=== PATIENT | female | born 1945 | race Caucasian/White ===

== ENCOUNTER 2016-10-27 03:03 | Observation (INO) ==
--- NOTE | 2016-10-27 03:26 | Emergency Department Note ---
Disposition Clinical Impression: Diaphoresis Dyspnea Qualifiers: Dyspnea type: unspecified Qualified Code(s): R06.00 - Dyspnea, unspecified Disposition: Admitted As Inpatient Condition: Undetermined Time of Disposition: 04:18 SOB HPI - General Chief Complaint: ED Shortness of Breath/Dyspnea Stated Complaint: "SOB/COPD/Bursting Out in Sweat" Time Seen by Provider: 10/27/16 03:18 Source: patient Mode of arrival: ambulatory Limitations: no limitations Nursing Notes Reviewed: Yes Vital Signs Reviewed: Yes - History of Present Illness 71-year-old female with history of COPD arrives [facility] emergency department complaining of a couple hours of shortness of breath and diaphoresis. The patient denies any chest pain associated with this. The patient does have a history of COPD and states this is a little bit like her COPD exacerbations. The patient denied using any albuterol inhalers are to arrival. The patient denies any other complaints at this time other than the dyspnea and diaphoresis. The patient denies any history of PE or DVT, recent surgeries, unilateral leg swelling, hemoptysis. 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 Severity: mild Consistency/Duration: constant Improves with: nothing Worsens with: nothing Known history of: COPD Associated symptoms: Reports: diaphoresis Treatment prior to arrival: none Cough present: No Sputum production: No - Related Data Home oxygen amount: none Allergies Allergy/AdvReac Type Severity Reaction Status Date / Time DARRYL Inhibitors Allergy Swelling Verified 10/27/16 03:07 of Lip/Tongue/Throat Sulfa (Sulfonamide Allergy Rash Verified 10/27/16 03:05 Antibiotics) Mfwmiul-Sil-Sbr Reductase AdvReac Muscle Pain Verified 10/27/16 03:07 Inhibitor [Statins] Review of Systems: Review of Systems Constitutional: Denies fevers, chills, night sweats HEENT: Denies headache, Respiratory: Denies cough, sputum change, hemoptysis, admits to dyspnea Cardiac: Denies chest pain, pressure, palpitations, dyspnea on exertion, pedal edema Gastrointestinal: Denies abdominal pain, changes in bowel habits, vomiting, nausea, hematemesis, hematochezia Genitourinary: Denies dysuria, hematuria, nocturia, change in frequency, urgency, incontinence Neurologic: Denies headaches, dizziness, syncope, focalized weakness, paraesthesias, weakness Musculoskeletal: Denies back pain, joint pain, myalgias All systems ED: reviewed and negative except as stated. Past Medical History - Past Medical History Attestation: Yes The following information was validated with the patient. Medical history: Reports: arthritis, COPD, coronary artery disease, diabetes, hyperlipidemia, hypertension Surgical history: Reports: non-contributory Psychiatric history: Reports: no psych history DRY BOX TENDER history: Reports: no DRY BOX TENDER history - Social History Smoking Status: Former smoker Smokeless Tobacco Status: No Alcohol use: Reports: none Drug use: Reports: none Physical Exam Physical Exam: General: Patient alert, no acute distress, not lethargic HEENT: Head normal inspection, atraumatic, PERRLA, oropharynx grossly intact and normal, trachea midline, no JVD Chest: Nontraumatic, nontender, normal chest rise CV: RRR with no murmurs, rubs, gallops Respiratory: Coarse breath sounds bilaterally, no rales, rhonchi, wheezes. Abdomen: Normal inspection, Normal bowel sounds 4 quadrants, nontender to palpation : Patient deferred Extremities: Normal inspection, full range of motion, appropriate pulses, capillary refill under 2 seconds Neurological: Patient alert and oriented 3, cranial nerves II through XII grossly intact, GCS 15 Skin: Warm, intact, no rashes noted - General Limitations: no limitations General appearance: alert Course Vital Signs Temperature 97.4 F L 10/27/16 03:07 Pulse Rate 91 10/27/16 03:07 Respiratory Rate 20 10/27/16 03:07 Blood Pressure 185/70 10/27/16 03:07 O2 Sat by Pulse Oximetry 95 10/27/16 03:07 Temperature 97.4 F L 10/27/16 03:07 Pulse Rate 81 10/27/16 04:29 Respiratory Rate 18 10/27/16 04:49 Blood Pressure 163/74 10/27/16 04:49 O2 Sat by Pulse Oximetry 95 10/27/16 04:29 Oxygen Delivery Oxygen Delivery Room Air Shortness of Breath/Dyspnea - MDM Narrative Medical decision making narrative: Patient's workup here in the emergency department demonstrates no acute process. Given the patient's diaphoresis and dyspnea without any active wheezing, and concern for cardiac origin. The patient has a heart score 4. Given this information we will likely admit the patient to the hospital. - Medical Records Medical records reviewed: Yes I reviewed the patient's medical records. - Lab Data Lab results reviewed: Yes I reviewed the patient's lab results. Result diagrams: 10/27/16 03:20 10/27/16 03:20 Lab Results 10/27/16 10/27/16 10/27/16 Range/Units 03:20 03:20 03:20 WBC 11.2 H (4.3-11.1) K/mcL RBC 4.53 (3.82-4.97) M/mcL Hgb 13.3 (11.5-15.4) g/dL Hct 40.1 (35.3-44.9) % MCV 88.5 (83.0-100.0) fL MCH 29.4 (28.0-33.3) pg MCHC 33.2 (31.6-35.5) g/dL RDW 12.7 (11.5-14.5) % Plt Count 306 (140-400) K/mcL MPV 9.7 (9.4-12.4) fL Immature Gran % 0.5 (0-4) % Seg Neutrophils % 82.9 % Lymphocytes % 9.4 % Monocytes % 5.7 % Eosinophils % 1.2 % Basophils % 0.3 % Neutrophils # 9.3 H (1.6-8.9) K/mcL Lymphocytes # 1.1 (0.6-4.6) K/mcL Monocytes # 0.6 (0.0-1.3) K/mcL Eosinophils # 0.1 (0.0-0.6) K/mcL Basophils # 0.0 (0.0-0.2) K/mcL Sodium 143 (136-145) mEq/L Potassium 4.0 (3.5-4.5) mEq/L Chloride 109 (98-109) mEq/L Carbon Dioxide 19 (19-29) mEq/L BUN 18 (7-20) mg/dL Creatinine 0.87 (0.57-1.11) mg/dL Est GFR ( Amer) > 60 (> 60) Est GFR (Non-Af Amer) > 60 (> 60) BUN/Creatinine Ratio 21 (6-26) Glucose 107 H (70-99) mg/dL Calculated Osmolality 298 (280-300) Calcium 10.2 (8.6-10.8) mg/dL Troponin I 0.00 (0-0.03) ng/mL - Radiology Data Radiology results reviewed: Yes I reviewed the patient's radiology results. - EKG Data EKG attestation: Yes I reviewed and interpreted this EKG. EKG results narrative: Heart rate 92 bpm. MO interval 180 ms. QTc 47 ms. Normal axis. Normal sinus rhythm. No ST elevation or ST depression noted. EKG sore to EKG from 2004. Attestation Statement - Attestation Attestation: Dr. Williamson note: Pt was seen in conjunction with resident Dr. Pulido, please see his charting for complete documentation. Assessment iuds-to-sznr time with the patient and agree with the patient's treatment and disposition; EKG shows no acute injury. No pain at this time. Troponin is unremarkable. Intermittent diaphoresis for the past week both during the day and at night. Admitted for further observation due to her sudden symptom onset tonight and concern for acute coronary syndrome Heart Score - Score History: Moderately Suspicious EKG: Normal Age: Greater than 65 Risk Factors: 1-2 risk factors Troponin: Less than normal limit HEART Score Total: 4
[2016-10-27 03:27] LABS: Basophils % 0.3 %; Eosinophils # 0.1 K/mcL (0.0-0.6); Eosinophils % 1.2 %; Hematocrit 40.1 % (35.3-44.9); Hemoglobin 13.3 g/dL (11.5-15.4); Immature Granulocytes % 0.5 % (0-4); Lymphocytes # 1.1 K/mcL (0.6-4.6); Lymphocytes % 9.4 %; Mean Corpuscular HGB Conc 33.2 g/dL (31.6-35.5); Mean Corpuscular Hemoglobin 29.4 pg (28.0-33.3); Mean Corpuscular Volume 88.5 fL (83.0-100.0); Mean Platelet Volume 9.7 fL (9.4-12.4); Monocytes # 0.6 K/mcL (0.0-1.3); Monocytes % 5.7 %; Neutrophils # 9.3 K/mcL (1.6-8.9); Platelet Count 306 K/mcL (140-400); Red Blood Count 4.53 M/mcL (3.82-4.97); Red Cell Distribution Width 12.7 % (11.5-14.5); Segmented Neutrophils % 82.9 %
[2016-10-27 03:46] LABS: BUN/Creatinine Ratio 21 (6-26); Blood Urea Nitrogen 18 mg/dL (7-20); Calcium 10.2 mg/dL (8.6-10.8); Carbon Dioxide 19 mEq/L (19-29); Chloride 109 mEq/L (98-109); Glucose 107 mg/dL (70-99); Osmolality,Calculated 298 (280-300); Sodium 143 mEq/L (136-145); eGFR For African Americans > 60 (> 60); eGFR For Non-African Americans > 60 (> 60)
--- NOTE | 2016-10-27 06:46 | Electrocardiograph Report ---
[place] [address] Test Date: 2016-10-27 Pat Name: Danika Snell Department: 102 Room: 2A Gender: F Globe Mounter: Graham : 1945 Requested By: Chano Pulido Order Number: [id number] Reading MD: Josue Art MD Measurements Intervals [place] Rate: 92 P: 81 MT: 180 QRS: 49 QRSD: 90 T: 61 QT: 357 QTc: 407 Interpretive Statements SINUS RHYTHM BASELINE ARTIFACT Electronically Signed On 10-27-2016 6:44:53 EDT by Josue Art MD
[2016-10-27] MEDS ORDERED: *HR* HYDROcodone/Acet 5/325 mg TABLET PO PRN (07:49)
[2016-10-27] MEDS ORDERED: Naloxone 0.4 MG/ML INJ IVP PRN (07:49)
[2016-10-27] MEDS ORDERED: *HR* Morphine 2 MG/ML SYRINGE IVP PRN (07:49)
[2016-10-27] MEDS ORDERED: Acetaminophen 325 MG TABLET PO PRN (07:49)
[2016-10-27] MEDS ORDERED: *HR* Dextrose 50 % in Water (Syg) 50 ML SYRINGE IVP PRN (07:52)
[2016-10-27] MEDS ORDERED: D5% in Water 1,000 ML IVC PRN (07:52)
[2016-10-27] MEDS ORDERED: Dextrose Gel 15 GM PO PRN ×2 (07:52)
[2016-10-27] MEDS ORDERED: Albuterol 2.5 MG/3 ML NEBULIZER IH PRN (07:52)
--- NOTE | 2016-10-27 08:11 | Internal Med History&Physical ---
Date of Encounter: 10/27/16 Time of Encounter: 08:11 Assessment and Plan (1) Dyspnea Current visit: Yes Status: Acute No cough, no wheezing, CXR is WNL She does have leukokocytosis which may be reactionary her chest is clear R/o anginal equivalent Trend troponins Obtain ECHO Qualifiers: Dyspnea type: unspecified Qualified Code(s): R06.00 - Dyspnea, unspecified (2) Diaphoresis Current visit: Yes Status: Acute Denies weight loss, no lymphadenopathy She has no anemia Her routine screening by PCP is up to date without a diagnosis of CA r/o anginal equivalent Mgt as in dyspnea above (3) Leukocytosis Current visit: Yes Status: Acute Will follow No evidence of infection CXR unremarkable Obtain Urine analysis Qualifiers: Leukocytosis type: unspecified Qualified Code(s): D72.829 - Elevated white blood cell count, unspecified (4) Hypertensive urgency Current visit: Yes Status: Acute Improving Resume home meds (5) COPD (chronic obstructive pulmonary disease) Current visit: Yes Status: Chronic Not in exacerbation CXR unremarkable Duonebs prn Resume home meds Qualifiers: COPD type: unspecified COPD Qualified Code(s): J44.9 - Chronic obstructive pulmonary disease, unspecified (6) Diabetes Current visit: Yes Status: Chronic Controlled on home meds Start on insulin-basal, prandial and supplemental Check A1C ADA diet FS ACHS Qualifiers: Diabetes mellitus type: type 2 Diabetes mellitus complication status: without complication Diabetes mellitus assisted insulin use: without termite exterminator use Qualified Code(s): E11.9 - Type 2 diabetes mellitus without complications Internal Medicine - H&P: HPI Chief complaint: Night sweats Admitted From: Home Plans for Post Hospital Care: Home History of present illness: Ms. Snell is a 71 year old female with past medical history of COPD on home oxygen, hypertension, diabetes mellitus Evaluated at bedside with her The patient presented to the emergency room with complaints of generalized sweats and diaphoresis which started 2 nights ago and associated with shortness of breath. She reports she was in her usual state of health until 2 nights ago when she awoke with sudden shortness of breath and diaphoresis which still resolved and last night she had similar episode since she presented to the ER. She also reports just feeling unwell after she was started on a new medication for her blood pressure by her PCP on Monday. She denies chest pain during these episodes, she denies palpitations, denies dizziness, she reports less shortness of breath is feeling winded. She was his home oxygen at night and has required oxygen since she came in. She reports cough without sputum production and she denies wheezing. She denies fever or chills. She reports this does not feel like asthma or COPD exacerbation. She denies sick contacts , she denies rhinorrhea, sore throat or recent travels , she denies myalgias. She denies abdominal, neurologic, or symptoms. She denies recent fatigue, or weight loss, she follows up with her PCP and her regular screening is up to date She is compliant with her home medications Past Med Surg Social Fam HX - Past Medical History Medical history: arthritis, COPD, coronary artery disease, diabetes, hyperlipidemia, hypertension Psychiatric history: no psych history - Past Surgical History Surgical History: non-contributory - Social History Smoking Status: Former smoker Smokeless Tobacco Status: No Alcohol use: none Drug use: none - Family History Father Name: Dean Millan Living Status: Age at : 47 Cause of : Cerebral hemorrage Mother Name: Monae Marroquin Age: 49 Living Status: Age at : 49 Cause of : cancer melanoma Internal Medicine - H&P: Meds Albuterol Neb [Proventil Neb] 2.5 mg IH Q6H PRN 10/27/16 [History] Albuterol Sulfate [Proair Hfa] 2 puff IH Q4H PRN 10/27/16 [History] Aspirin [Lo-Dose Aspirin EC] 81 mg PO DAILY 10/27/16 [History] Atorvastatin [Lipitor] 20 mg PO DAILY 10/27/16 [History] Cholecalciferol (D-3) [Vitamin D] 1,000 unit PO DAILY 10/27/16 [History] Fluticasone/Salmeterol [Advair 250-50 Diskus] 1 puff IH Q12H 10/27/16 [History] Gabapentin [Neurontin] 100 mg PO TID 10/27/16 [History] Gemfibrozil [Lopid] 600 mg PO BID 10/27/16 [History] Glimepiride [Amaryl] 4 mg PO DAILY 10/27/16 [History] Losartan Potassium [Cozaar] 50 mg PO DAILY 10/27/16 [History] Metformin [Glucophage] 500 mg PO BID 10/27/16 [History] Metoprolol [Lopressor] 100 mg PO BID 10/27/16 [History] Montelukast [Singulair] 10 mg PO DAILY 10/27/16 [History] NIFEdipine [Adalat cc] 90 mg PO DAILY 10/27/16 [History] Omeprazole 20 mg PO DAILY 10/27/16 [History] Oxygen 2 l .ROUTE HS 10/27/16 [History] Vit C/Vit E/Lutein/Min/[place]-3 [Ocuvite Softgel] 1 cap PO DAILY 10/27/16 [ History] Allergies DARRYL Inhibitors Allergy (Verified 10/27/16 03:07) Swelling of Lip/Tongue/Throat Sulfa (Sulfonamide Antibiotics) Allergy (Verified 10/27/16 03:05) Rash Vmbzcvu-Ksp-Hqi Reductase Inhibitor [Statins] Adverse Reaction (Verified 03:07) Muscle Pain All Systems PM: A 10-system review of systems was performed and is negative for pertinent findings except as documented above in the HPI. - Constitutional Constitutional: night sweats, no chills, no fever(s) - EENT Eyes: no change in vision, no discharge, no pain, no photophobia Ears: no ear discharge, no ear pain, no tinnitus Nose, mouth and throat: no dysphagia, no nasal discharge, no neck pain, no sore throat - Cardiovascular Cardiovascular ROS IM: as per HPI, no chest pain, no diaphoresis, no dyspnea, no lightheadedness, no palpitations, no syncope - Respiratory Respiratory: as per HPI - Gastrointestinal Gastrointestinal: no abdominal pain, no diarrhea, no hematemesis, no hematochezia, no melena, no nausea, no vomiting - Genitourinary Genitourinary: no change in urinary stream, no dysuria, no flank pain, no hematuria - Musculoskeletal Musculoskeletal ROS IM: no numbness, no tingling - Integumentary Integumentary IM: no rash, no unusual bruising - Neurological Neurological ROS: no confusion, no convulsions, no focal weakness, no numbness, no tingling, no tremor(s) - Hematologic/Lymphatic Hematologic/Lymphatic: no easy bruising - Constitutional Vitals: Temp Pulse Resp BP Pulse Ox 98.5 F 91 16 176/79 97 10/27/16 07:51 10/27/16 07:51 10/27/16 07:51 10/27/16 07:51 10/27/16 07:51 General appearance: Present: A&O X 3, pleasant, no acute distress - Head Head exam: Present: atraumatic, normocephalic - Eye Eye exam: Present: PERRL, conjuntiva pink, sclera anicteric Pupils: Present: PERRL - Neck Neck exam general surgery: Present: supple, trachea midline. Absent: lymphadenopathy - Respiratory Respiratory exam: Present: CTAB. Absent: accessory muscle use, rales, rhonchi, wheezes - Cardiovascular Cardiovascular exam: Present: RRR, +S1, +S2. Absent: diastolic murmur, gallop, rubs, systolic murmur - GI/Abdominal GI/Abdominal exam: Present: normal bowel sounds, soft, no peritoneal signs. Absent: distended, tenderness - Extremities Exam Extremities exam: Present: warm, radial pulses palpable and symetrical. Absent : calf tenderness, cyanotic, pedal edema - Neurological Exam Neurological exam: Present: alert, CN II-XII intact, normal gait, oriented X3, no focal deficits. Absent: pronater drift, facial droop, speech deficit - Skin Skin exam: Present: dry, intact Internal Med - H&P Results - Labs CBC & Chem 7: 10/27/16 03:20 10/27/16 03:20
[2016-10-27] MEDS: Multivit/Ca/Min/Fe/FA 1 TAB TABLET PO SCH (09:10)
[2016-10-27] MEDS: Metoprolol 100 MG TABLET PO SCH ×2 (09:10→21:17)
[2016-10-27] MEDS: Aspirin Enteric Coated 81 MG Tablet PO SCH (09:11)
[2016-10-27] MEDS: Gabapentin 100 MG CAPSULE PO SCH ×3 (09:11→21:17)
[2016-10-27] MEDS: Cholecalciferol (D-3) 1,000 UNIT TABLET PO SCH (09:12)
[2016-10-27] MEDS: Insulin LISPRO 300 UNITS/3 ML VIAL SQ SCH ×5 (09:12→17:11)
[2016-10-27] MEDS: NIFEdipine XL (24 HR) 30 MG TAB.ER.24 PO SCH (09:16)
[2016-10-27 10:34] LABS: Hemoglobin A1C 5.6 %
[2016-10-27] MEDS: Budesonide/Formoterol 80/4.5 MDI IH SCH ×2 (10:45→20:11)
[2016-10-27 11:56] LABS: Bilirubin,Urine Negative (Negative); Blood,Urine Negative (Negative); Clarity,Urine Cloudy (Clear); Color,Urine Yellow (Yellow); Glucose,Urine (UA) Normal (Normal); Ketones,Urine Negative (Negative); Leukocyte Esterase,Urine Large (Negative); Nitrite,Urine Positive (Negative); Protein,Urine Trace mg/dL (Neg-Trace); Specific Gravity,Urine 1.024 (1.010-1.025); Urobilinogen,Urine Normal (Normal)
[2016-10-27 11:58] LABS: Bacteria,Urine Many per hpf (None-Few); Hyaline Casts,Urine None Seen per lpf (None-Few); RBC,Urine 0-3 per hpf (0-3); Squamous Epithelial Cell,Urine Many per lpf (None-Few); WBC,Urine TNTC per hpf (0-3)
[2016-10-27] MEDS ORDERED: Insulin LISPRO 300 UNITS/3 ML VIAL SQ SCH (21:00)
[2016-10-27] MEDS ORDERED: Insulin DETEMIR 100 UNIT/ML X5UNITS SQ SCH (21:00)
[2016-10-28 05:22] LABS: Basophils % 0.6 %; Eosinophils # 0.1 K/mcL (0.0-0.6); Hematocrit 36.2 % (35.3-44.9); Hemoglobin 12.1 g/dL (11.5-15.4); Immature Granulocytes % 0.4 % (0-4); Lymphocytes # 1.4 K/mcL (0.6-4.6); Lymphocytes % 21.1 %; Mean Corpuscular HGB Conc 33.4 g/dL (31.6-35.5); Mean Corpuscular Hemoglobin 29.9 pg (28.0-33.3); Mean Corpuscular Volume 89.4 fL (83.0-100.0); Mean Platelet Volume 10.3 fL (9.4-12.4); Monocytes # 0.6 K/mcL (0.0-1.3); Monocytes % 8.8 %; Neutrophils # 4.6 K/mcL (1.6-8.9); Platelet Count 280 K/mcL (140-400); Red Blood Count 4.05 M/mcL (3.82-4.97); Red Cell Distribution Width 12.8 % (11.5-14.5); Segmented Neutrophils % 67.1 %
[2016-10-28] MEDS: Insulin LISPRO 300 UNITS/3 ML VIAL SQ SCH ×5 (08:21→17:07)
[2016-10-28] MEDS: Aspirin Enteric Coated 81 MG Tablet PO SCH (08:22)
[2016-10-28] MEDS: NIFEdipine XL (24 HR) 30 MG TAB.ER.24 PO SCH (08:22)
[2016-10-28] MEDS: Cholecalciferol (D-3) 1,000 UNIT TABLET PO SCH (08:23)
[2016-10-28] MEDS: Multivit/Ca/Min/Fe/FA 1 TAB TABLET PO SCH (08:23)
[2016-10-28] MEDS: Gabapentin 100 MG CAPSULE PO SCH ×2 (08:23→14:43)
[2016-10-28] MEDS: Metoprolol 100 MG TABLET PO SCH (08:23)
[2016-10-28] MEDS: Budesonide/Formoterol 80/4.5 MDI IH SCH (08:43)
--- NOTE | 2016-10-28 10:38 | ECHO - Doppler Report ---
Echocardiogram Name: Danika Snell Date of Study: 10/27/2016 Date: 1945 Ht: 63.0 in Medical Record#: [id number] Age: 71 Wt: 164.0 lb Gender: Female BSA: 1.78 Order #: [id number] Location: [facility] Room #: [id number] Reading Physician: Haley Acosta DO Cushion Maker Hand: Ariana Palomino Ordering Physician: Dayron Luis MD Primary Physician: Laureano Deng MD Indications: Dyspnea at rest Impressions: LVEF 65%. Normal left ventricular size and systolic function. There is evidence of mild diastolic dysfunction of the left ventricle. Normal right ventricular size and function. No significant valvular dysfunction. Estimated RVSP was 29 mmHg. No pulmonary hypertension. Left Ventricular Wall Motion: Rest Echo Findings All wall segments showed normal motion. Findings: Study Quality * Technically adequate exam. ECG Findings * Normal sinus rhythm with ectopy. Left Ventricle * LVEF 65%. * Normal LV chamber size, wall thickness and function. * Mild left ventricular diastolic dysfunction. Aortic Valve * No aortic regurgitation. * Aortic valve not well visualized. * No aortic stenosis. Mitral Valve * No mitral regurgitation. * Normal mitral valve structure. * No mitral stenosis. Tricuspid Valve * Normal tricuspid valve structure. * Trace tricuspid regurgitation. * Estimated RA pressure is 3 mmHg. * Estimated RVSP is 29 mmHg. * No pulmonary hypertension. Pulmonic Valve * Pulmonic valve is not well visualized. * No pulmonic stenosis. * No pulmonic regurgitation. Pulmonary Artery * Pulmonary artery not well visualized. Right Ventricle * Normal right ventricular structure and function. Left Atrium * Normal left atrial size. Right Atrium * Normal right atrial size. Interatrial Septum * No evidence of PFO by color Doppler. Pericardium * There is no pericardial effusion present. IVC * Normal IVC dimensions and inspiratory collapse. Aorta * Suboptimally visualized. History Diabetes Hypercholesteremia Years 48 Packs 2 Family History of CAD History of CAD/PTCA Measurements: BP: 106/ 57 2D Normal Values RVIDd: 2.80 cm <2.7 cm IVSd: 1.00 cm 0.6 - 1.0 cm LVIDd: 5.10 cm 3.7 - 5.6 cm LVPWd: 1.20 cm 0.6 - 1.1 cm LVIDs: 2.80 cm 1.5 - 3.6 cm AO: 2.70 cm < 4.0 cm LA: 3.80 cm 2.0 - 4.0cm %FS: 45.10 cm >25 % LA volume: 36 Mitral Valve Peak E:1.16 m/sec Peak A:1.16 m/sec E/A Ratio:1 Peak E' Lat Cb:7.6 cm/s Peak E' Med Cb:5.17 cm/s E/E' Lat Ratio:15.3 E/E' Med Ratio:22.4 Tricuspid Valve TV Regurg Peak Grad: 26.00mmHg TV Regurg Peak Cb: 2.55m/sec Updated by Haley Acosta on 10/28/2016 10:25:22 AM electronically signed on 10/28/2016 10:33:25 AM with status of Final Wall Motion [place]: 1=Normal, 2=Hypokinesis, 3=Akinesis, 4=Dyskinesis, 5=Aneurysmal, 6=Hyperkinetic, X=Not Visualized (Blank)=Missing
[2016-10-28 11:03] VITALS: BP 112/67
[2016-10-28] MEDS ORDERED: *HR* HYDROcodone/Acet 5/325 mg TABLET PO PRN (12:47)
--- NOTE | 2016-10-28 16:43 | Discharge Summary ---
Date of Encounter: 10/28/16 Time of Encounter: 16:41 - Discharge Diagnosis (1) Dyspnea Priority: Primary Status: Acute Qualifiers: Dyspnea type: shortness of breath Qualified Code(s): R06.02 - Shortness of breath (2) Diaphoresis Priority: Primary Status: Acute (3) Hypertensive urgency Priority: Primary Status: Acute (4) COPD (chronic obstructive pulmonary disease) Priority: Secondary Status: Chronic Qualifiers: COPD type: unspecified COPD Qualified Code(s): J44.9 - Chronic obstructive pulmonary disease, unspecified (5) Diabetes Priority: Secondary Status: Chronic Qualifiers: Diabetes mellitus type: type 2 Diabetes mellitus complication status: without complication Diabetes mellitus fdc insulin use: without parts counterman use Qualified Code(s): E11.9 - Type 2 diabetes mellitus without complications - Discharge Medications Home Medications: Albuterol Neb [Proventil Neb] 2.5 mg IH Q6H PRN 10/27/16 [History] Albuterol Sulfate [Proair Hfa] 2 puff IH Q4H PRN 10/27/16 [History] Aspirin [Lo-Dose Aspirin EC] 81 mg PO DAILY 10/27/16 [History] Atorvastatin [Lipitor] 20 mg PO DAILY 10/27/16 [History] Cholecalciferol (D-3) [Vitamin D] 1,000 unit PO DAILY 10/27/16 [History] Fluticasone/Salmeterol [Advair 250-50 Diskus] 1 puff IH Q12H 10/27/16 [History] Gabapentin [Neurontin] 100 mg PO TID 10/27/16 [History] Gemfibrozil [Lopid] 600 mg PO BID 10/27/16 [History] Glimepiride [Amaryl] 4 mg PO DAILY 10/27/16 [History] Losartan Potassium [Cozaar] 50 mg PO DAILY 10/27/16 [History] Metformin [Glucophage] 500 mg PO BID 10/27/16 [History] Metoprolol [Lopressor] 100 mg PO BID 10/27/16 [History] Montelukast [Singulair] 10 mg PO DAILY 10/27/16 [History] NIFEdipine [Adalat cc] 90 mg PO DAILY 10/27/16 [History] Omeprazole 20 mg PO DAILY 10/27/16 [History] Oxygen 2 l .ROUTE HS 10/27/16 [History] Vit C/Vit E/[place]in/Min/[place]-3 [Ocuvite Softgel] 1 cap PO DAILY 10/27/16 [ History] Allergies/Adverse Reactions: Allergies DARRYL Inhibitors Allergy (Verified 10/27/16 03:07) Swelling of Lip/Tongue/Throat Sulfa (Sulfonamide Antibiotics) Allergy (Verified 10/27/16 03:05) Rash Xqivlte-Esf-Yrv Reductase Inhibitor [Statins] Adverse Reaction (Verified 03:07) Muscle Pain Procedures/tests Complete & Pending: Procedures Performed prior 72 hours Category Date Time Status EV echocardiogram Stat Y 10/27/16 07:51 Completed Date of admission: 10/27/16 04:42 Primary care physician: Laureano Deng MD Discharging clinician: Stormy Dominguez Anticipated date of discharge: 10/28/16 - Patient Status Disposition: Home, Self-Care Condition: Good Functional capacity at discharge: independent ambulation Overall status at discharge: patient is back to baseline - Discharge Instructions Instructions: Diabetes Mellitus Type 2 in Adults (DC), Chronic Obstructive Pulmonary Disease (DC) Follow Up With: Laureano Deng MD [Primary Care Provider] - 11/02/16 10:30 am - Diet and Activity Activity: resume usual activities as tolerated, wear oxygen at all times Diet: diabetic diet, low fat, low cholesterol, low salt diet Hospital course: Ms. Snell is a 71 year old female with the above medical problems, admitted with dyspnea and diaphoresis. Initial ER workup showed no acute abnormality, chest XRay showed no Pneumonia/effusions. She was noted to be on home O2 and O2 requirements were at baseline. Serial Troponins remained negative and EKG/ Telemetry showed no changes. Patient reports perioral tingling and episodes of hypoglycemia (lowest blood sugar in 60s) at home and she was encouraged to keep a log of her blood sugars and d/w PCP; not on insulin but only on oral hypoglycemics. Her blood sugars in the hospital showed no episodes of hypoglycemia. Patient remained hemodynamically stable and stable for discharge. - Time Spent with Patient Total time spent providing and/or coordinating discharge services: Greater than 30 minutes (45 min) - Constitutional Vitals: Temp Pulse Resp BP Pulse Ox 98.8 F 71 16 112/67 93 10/28/16 11:00 10/28/16 11:00 10/28/16 11:00 10/28/16 11:00 10/28/16 11:00 General appearance: Present: A&O X 3, answers questions appropriately - Respiratory Respiratory exam: Present: CTAB. Absent: accessory muscle use, rales, rhonchi, wheezes - Cardiovascular Cardiovascular exam: Present: RRR, +S1, +S2. Absent: diastolic murmur, gallop, rubs, systolic murmur
[2016-10-28] MEDS ORDERED: *HR* Heparin 5,000 UNIT/ML VIAL SQ SCH (18:00)
== END 2016-10-28 17:17 | disposition home or self-care (01) ==
LOC: EMEROO 03:03 → 2ANU 03:03 → SUATTDRO 04:42 → 2ANU 05:00
PROVIDERS: ADMIT Internal Medicine; ATTEND Internal Medicine